=== PATIENT | male | born 1940 | race Caucasian/White ===

== ENCOUNTER 2020-05-07 14:09 | Inpatient (IN) | payer MEDICARE, OTHER ==
[~2020-05-07] VITALS: Ht 172.7 cm; Wt 86.7 kg
[2020-05-07] MEDS: NS 1,000 ML IV SCH ×2 (15:00→21:40)
[2020-05-07 15:12] LABS: BASO % 0.5 % (0.0-1.0); HEMATOCRIT 43.8 % (42.0-52.0); LYMPH # 0.8 10^3/uL (1.5-5.0); LYMPH % 18.4 % (24.0-44.0); MEAN CORPUSCULAR HEMOGLOBIN 31.6 pg (27.0-33.0); MEAN CORPUSCULAR VOLUME 98.9 fl (80.0-96.0); MONO # 0.4 10^3/uL (0.0-0.8); MONO % 9.2 % (0.0-5.0); NEUTROPHILS # 3.1 10^3/uL (1.5-8.5); PLATELET COUNT, AUTOMATED 105 10^3/uL (150-450); RED BLOOD COUNT 4.43 10^6/uL (4.30-6.10); WHITE BLOOD COUNT 4.3 10^3/uL (4.0-10.0)
--- NOTE | 2020-05-07 15:24 | REP ---
INDICATION: altered metanl status COMPARISON: None. TECHNIQUE: Axial noncontrast images from the skull base to the thoracic inlet with coronal reformations. This CT examination was performed using the following dose reduction techniques: Automated exposure control, adjustment of mA and/or kv according to the patient's size, and use of iterative reconstruction technique. FINDINGS: Atrophy with periventricular leukomalacia and microvascular ischemic changes are appreciated. The ventricles and sulci are symmetric. Martinez-white differentiation is maintained. There is no evidence for acute intracranial hemorrhage, mass/mass effect, pathology or infarction. No extra-axial fluid collection. Calvarium is intact. Paranasal sinuses and mastoid air cells are clear. IMPRESSION: Atrophy and microvascular ischemic changes. No acute intracranial hemorrhage, infarction, or mass/mass effect. <Electronically signed by Brad Khan > 05/07/20 [id number]
--- NOTE | 2020-05-07 15:25 | REP ---
INDICATION: Coronavirus workup COMPARISON: None. TECHNIQUE: Portable AP view of the chest FINDINGS: The mediastinum and cardiac silhouette are within normal limits for portable technique. The lung franco demonstrate perihilar and lower lobe infiltrates (left greater than right) consistent with COVID-19 pulmonary disease and multifocal pneumonia. IMPRESSION: Multifocal bibasilar infiltrates (left greater than right) consistent with COVID-19 pulmonary disease. <Electronically signed by Brad Khan > 05/07/20 [id number]
[2020-05-07] MEDS ORDERED: ACETAMINOPHEN 325 MG TAB PO ONE (15:30)
[2020-05-07 16:24] LABS: INR 1.07; PROTHROMBIN TIME 14.1 SECONDS (12.5-14.3)
[2020-05-07 16:25] LABS: PARTIAL THROMBOPLASTIN TIME 32.6 SECONDS (24.2-38.5)
[2020-05-07 16:28] LABS: D-DIMER QUANT 1582.84 ng/ml (<500)
[2020-05-07 16:34] LABS: BILIRUBIN,TOTAL 0.5 MG/DL (0.2-1.0); C REACTIVE PROTEIN QUANTITATIV 7.48 MG/DL (0.00-0.30); CALCIUM LEVEL 8.3 MG/DL (8.8-10.2); CK-MB VALUE MASS 3.3 NG/ML (<3.6); CREATININE FOR GFR 1.4 MG/DL (0.70-1.30); GLOMERULAR FILTRATION RATE 52.3 (>42); MAGNESIUM LEVEL 2.2 MG/DL (1.8-2.4); MB/CK RELATIVE INDEX 0.54 (< OR =4); POTASSIUM SERUM 4.4 MEQ/L (3.5-5.1); TOTAL PROTEIN 6.4 GM/DL (6.4-8.2); TROPONIN I 0.04 NG/ML (< 0.10)
[2020-05-07] MEDS ORDERED: ASPI81TA26 PO (17:05)
[2020-05-07] MEDS ORDERED: CEFD1CAP8 PO (17:05)
--- NOTE | 2020-05-07 19:58 | HPEPDOC ---
General Date of Admission May 07, 2020 at 18:32 Date of Service: May 07, 2020 Chief Complaint The patient is a 79-year-old male admitted with a reason for visit of Altered Mental Status,Covid 19. Source: Patient, Family History of Present Illness Mr. Freeman is a 79 year old male with history of prostate cancer s/p radiation in 1999 who is here with altered mental status and COVID 19 positive. Due to patient's AMS, history was obtained from the son, Eliecer Freeman. Patient started to have symptoms on 04/29/2020 with a cough. Then on 05/01/2020, he started to be lethargic and confused. On 05/05/2020, he had a fever, and [facility] There he was diagnosed with a UTI and COVID 19. Since they did not have a COVID unit, he was sent home with cefdinir. He did not do well at home. He had poor oral intact and still very confused. He was taken to the ED here. Imaging demonstrated multifocal bibasilar infiltrates (left greater than right). He required 2L of oxygen. When I went down to speak with him, he went into tangents. I asked about chest pain, and he started talking about a football accident when he was younger and that his father had 2 DC's in his 50s. He is redirectable. He denies shortness of breath, but reports the productive cough with white phlegm. He reports having dysuria. He does not know when it started but says he's had for a few days. He does like to talk. 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 He does know he is in the hospital. He thought about the year for a while but was able to say 2019. Suspecting that his altered mental status is secondary to infection, possibly UTI or pneumonia. Patient be admitted for metabolic encephalopathy and COVID 19 pneumonia. I did speak to both the son and patient's about CODE STATUS. Son had deferred to patient's . Patient's wanted more time to think about this, but has decided on full code at this time. I let them know that at any time during this admission, they can change his CODE STATUS. Home Medications Scheduled Aspirin (Aspirin EC) 81 Mg Tablet., 81 MG PO DAILY, (Reported) Cefdinir (Cefdinir) 300 Mg Capsule, 300 MG PO BID, (Reported) FOR 10 DAYS, STARTED 05/05 Allergies Coded Allergies: ampicillin (Verified Allergy, Unknown, UNKNOWN, 05/07/20) Past Medical History Medical History 1. Prostate cancer Surgical History 1. Radiation for us to cancer in 1999 Family History Father: at age 81, history of DC in his 50s Mother: , patient does not know mother's past medical history at this time Social History * Smoker: Denies Alcohol: Denies Drugs: denies A-FIB/CHADSVASC A-FIB History Current/History of A-Fib/PAF?: No Review of Systems Constitutional: Reports: Chills, Fever Eyes: Denies: Vision change ENT: Denies: Sore Throat Skin: Denies: Rash Pulmonary: Reports: Cough (productive with white sputum); Denies: Dyspnea Cardiovascular: Denies: Chest Pain Gastrointestinal: Denies: Nausea, Abdominal Pain, Diarrhea Genitourinary: Reports: Dysuria (for a few days) Hematologic: Denies: Bruising Musculoskeletal: Reports: Shoulder Pain Neurological: Reports: Numbness (left foot secondary to trauma) Physical Examination General Exam: Positive: No Acute Distress Eye Exam: Positive: EOMI; Negative: Sclera icteric ENT Exam: Positive: Atraumatic, Tongue Midline Neck Exam: Positive: Supple Chest Exam: Positive: Diminished Heart Exam: Positive: Rate Normal, Regular Rhythm Abdomen Exam: Positive: Normal bowel sounds, Soft; Negative: Tenderness Extremity Exam: Negative: Edema Skin Exam: Positive: Nl turgor and temperature Neuro Exam: Positive: Cranial Nerves 3-12 NL Psych Exam: Positive: Mood NL; Negative: Mental status NL Vital Signs Vital Signs Date Time Temp Pulse Resp B/P (MAP) Pulse Ox O2 Delivery O2 Flow Rate FiO2 05/07/20 19:06 98.6 66 19 99 Nasal Cannula 2.0 05/07/20 18:06 156/80 (105) Laboratory Data Labs 24H Laboratory Tests 2 05/07/20 14:26: Immature Granulocyte % (Auto) 0.9, Neutrophils (%) (Auto) 71.0H, Lymphocytes (%) (Auto) 18.4L, Monocytes (%) (Auto) 9.2H, Eosinophils (%) (Auto) 0.0, Basophils (%) (Auto) 0.5, Neutrophils # (Auto) 3.1, Lymphocytes # (Auto) 0.8L, Monocytes # (Auto) 0.4, Eosinophils # (Auto) 0.0, Basophils # (Auto) 0.0, Nucleated Red Blood Cells % (auto) 0.0 05/07/20 15:20: Urine Color YELLOW, Urine Appearance HAZY, Urine pH 5.0, Urine Specific [place] 1.023, Urine Protein 3+H, Urine Glucose (UA) NEGATIVE, Urine Ketones NEGATIVE, Urine Blood 2+H, Urine Nitrite NEGATIVE, Urine Bilirubin NEGATIVE, Urine Urobilinogen 0.2, Urine Leukocyte Esterase TRACEH, Urine WBC (Auto) 50H, Urine RBC (Auto) 31H, Urine Hyaline Casts (Auto) 0, Urine Bacteria (Auto) NEGATIVE, Urine Squamous Epithelial Cells 0, Urine Granular Casts (Auto) 1, Urine Mucus (Auto) SMALL, Urine Sperm (Auto) 05/07/20 15:54: Prothrombin Time 14.1H, Prothromb Time International Ratio 1.07, Activated Partial Thromboplast Time 32.6, Fibrinogen 466H, D-Dimer, Quantitative 1582.84H, Anion Gap 5L, Glomerular Filtration Rate 52.3, Lactic Acid Level 1.1, Calcium Level 8.3L, Magnesium Level 2.2, Ferritin 1113H, Total Bilirubin 0.5, Aspartate Amino Transf (AST/SGOT) 61H, Alanine Aminotransferase (ALT/SGPT) 40, Alkaline Phosphatase 41L, Lactate Dehydrogenase 390H, Total Creatine Kinase 616H, Creatine Kinase MB 3.3, Creatine Kinase MB Relative Index 0.54, Troponin I 0.04, C-Reactive Protein, Quantitative 7.48H, Total Protein 6.4, Albumin 3.0L, Albumin/Globulin Ratio 0.9 CBC/BMP Laboratory Tests 05/07/20 14:26 05/07/20 15:54 Microbiology Microbiology 05/07/20 Blood Culture, Received Pending 05/07/20 Urine Culture, Received Pending 05/07/20 Blood Culture, Received Pending Assessment/Plan Mr. Freeman is a 79 year old male is here with altered mental status, UTI, and COVID 19 pneumonia. Suspecting metabolic encephalopathy secondary to infection. Patient does report dysuria. He's had cefdinir at home which may skew UA and urine culture, but was diagnosed with UTI from [facility]. Chest x-ray demonstrates multifocal pneumonia. We'll treat for community acquired pneumonia with Rocephin and azithromycin. Pro calcitonin has been ordered which will help decide plan for antibiotics. Otherwise since patient requires oxygen, he'll be on dexamethasone, Remdesivir, and Lovenox. Plan / VTE VTE Prophylaxis Ordered?: Yes Plan Plan 1. Metabolic encephalopathy May be secondary to COVID pneumonia versus UTI Antibiotics will cover for both pneumonia and UTI On anticoagulation, steroids, and Remdesivir for COVID Patient does like to wander, we will place sitter in room 2. COVID pneumonia Symptoms began 04/29/2020 Productive cough and hypoxia. Imaging demonstrated multifocal pneumonia May have superimposed arterial infection on viral infection. We'll use Pro calcitonin to determine de-escalation of antibiotics Rocephin and azithromycin Monitor inflammatory markers 3. UTI Patient reports dysuria for a few days Diagnosed with UTI at [facility], was put on cefdinir May skew urinalysis and urine culture results Pending urine culture Ready on Rocephin 4. Acute kidney injury versus chronic kidney disease Unknown baseline Creatinine on admission was 1.4 says patient does not like to go to physician Monitor creatinine and supportive care Encourage oral intake of fluids 5. DVT prophylaxis Lovenox subcutaneous SHERYL HERNDON DO May 07, 2020 19:58
[2020-05-07] MEDS ORDERED: dexameTHASONE 4 MG/ML 1ML VIAL (J1100 PER 1MG) IV ONE (20:00)
[2020-05-07] MEDS ORDERED: cefTRIAXone SOD 1 GM in D5W MINI-BAG PLUS 50 ML IV SCH (22:00)
[2020-05-07] MEDS ORDERED: SODIUM CHLORIDE 0.9% INJ 10 ML SYR IV ONE (22:00)
[2020-05-07] MEDS ORDERED: AZITHROMYCIN INJ 500 MG, VIAL MATE ADAPTER 1 EACH in D5W 250 ML IV SCH (23:00)
[2020-05-08] VITALS (7 sets, daily range): BP systolic 136–161; BP diastolic 70–79; O2SAT 95–97
[2020-05-08] MEDS: NS 1,000 ML IV SCH (01:00)
[2020-05-08 07:11] LABS: HEMOGLOBIN 13.5 g/dl (13.5-17.5); MEAN CORPUSCULAR HEMOGLOBIN 31.9 pg (27.0-33.0); MEAN CORPUSCULAR HGB CONC 32.9 g/dl (32.0-36.5); MEAN CORPUSCULAR VOLUME 96.9 fl (80.0-96.0); PLATELET COUNT, AUTOMATED 133 10^3/uL (150-450); RED BLOOD COUNT 4.23 10^6/uL (4.30-6.10); WHITE BLOOD COUNT 3.2 10^3/uL (4.0-10.0)
[2020-05-08] MEDS ORDERED: LACTOBACILLUS ACIDOPHILUS CAP (BACID) PO SCH (08:00)
--- NOTE | 2020-05-08 08:03 | ECGEPIP ---
[facility] - ED Test Date: 2020-05-07 Pat Name: KEO LOZANO Department: Room: - Gender: Male Director Of Assisted Living: alfredito : 1940 Requested By: Pennie Fung Order Number: [id number] Reading MD: Pennie Fung Measurements Intervals [place] Rate: 80 P: 27 LA: 177 QRS: 3 QRSD: 108 T: -11 QT: 348 QTc: 403 Interpretive Statements SINUS RHYTHM POSSIBLE LEFT ATRIAL ENLARGEMENT POSSIBLE ANTERIOR MYOCARDIAL INFARCTION, OF INDETERMINATE AGE INFERIOR MYOCARDIAL INFARCTION, OF INDETERMINATE AGE INTERPRETATION BASED ON A DEFAULT AGE OF 40 YEARS CLINICAL CORRELATION NO PRIOR Electronically Signed on 05-08-2020 8:03:17 EST by Pennie Fung
[2020-05-08 08:05] LABS: ALBUMIN 2.6 GM/DL (3.2-5.2); ALT/SGPT 37 U/L (12-78); BILIRUBIN,DIRECT 0.1 MG/DL (0.0-0.2); BILIRUBIN,TOTAL 0.4 MG/DL (0.2-1.0); BLOOD UREA NITROGEN 23 MG/DL (7-18); CALCIUM LEVEL 8.3 MG/DL (8.8-10.2); CARBON DIOXIDE LEVEL 24 MEQ/L (21-32); CHLORIDE LEVEL 107 MEQ/L (98-107); FERRITIN 1026 NG/ML (26-388); GLOMERULAR FILTRATION RATE > 60.0 (>42); GLUCOSE, FASTING 133 MG/DL (70-100); MAGNESIUM LEVEL 2.1 MG/DL (1.8-2.4); POTASSIUM SERUM 4.8 MEQ/L (3.5-5.1); SODIUM LEVEL 137 MEQ/L (136-145); TOTAL PROTEIN 5.9 GM/DL (6.4-8.2); TROPONIN I 0.03 NG/ML (< 0.10)
[2020-05-08] MEDS ORDERED: dexameTHASONE 4 MG/ML 1ML VIAL (J1100 PER 1MG) IV SCH (09:00)
[2020-05-08] MEDS ORDERED: ENOXAPARIN 40MG/0.4ML SYRINGE (J1650 PER 10MG) SC SCH (09:00)
[2020-05-08] MEDS ORDERED: ASPIRIN 81 MG ENTERIC TAB PO SCH (09:00)
[2020-05-08] MEDS ORDERED: FLUBLOK(EGG FREE)(QUAD)INFLUENZA VACC 0.5ML SYRINGE 18YRS & OLDER IM ONE (09:00)
[2020-05-08 09:13] LABS: ANISOCYTOSIS 1+; ATYPICAL LYMPH 4 % (0-5); LYMPHOCYTES 15 % (16-44); MONOCYTES 6 % (0-5); NEUTROPHILS 75 % (28-66); PLATELET ESTIMATE DECREASED (NORMAL)
[2020-05-08] MEDS ORDERED: CIPR500S PO (14:42)
--- NOTE | 2020-05-08 19:11 | DS.PDOC ---
Discharge Summary General Date of Admission May 07, 2020 at 18:32 Date of Discharge Friday, May 08, 2020 Attending Physician: FARIBA NOBLE MD Discharge Summary PROCEDURES PERFORMED DURING STAY: None ADMITTING DIAGNOSES: Metabolic encephalopathy Covid pneumonia Possible acute kidney injury Status post urinary tract infection on outpatient antibiotics DISCHARGE DIAGNOSES: Covid 19 infection Early signs of dementia Possible acute kidney injury, resolved Status post urinary tract infection on outpatient antibiotics COMPLICATIONS/CHIEF COMPLAINT: Altered Mental Status,Covid 19. HISTORY OF PRESENT ILLNESS: Aj is a pleasant 79-year-old male with notable past medical history of prostate cancer status post radiation in 1999, who came to the [facility] ED on 05/07/20 at the recommendation of his and son for confusion in the setting of positive Covid 19 infection. The patient initially began having a cough on 04/29 and his symptoms subsequently progressed on to confusion and lethargy and then ultimately on 05/05 with fever. At that time, patient presented to [facility] where he was diagnosed with urinary tract infection as well as testing positive for Covid 19 infection. He was subsequently discharged from [facility] within oral outpatient prescription for Cefdinir. Due to continued confusion, patient's family brought him to [facility] for further evaluation. In the emergency department portable chest x-ray showed poor inspiratory effort with cardiomegaly and bilateral infiltrates consistent with Covid 19. Pneumonia. The patient was started on remdesivir 100 mg IV, after receiving a one time dose of 200 mg IV. He was also started on daily dexamethasone 6 mg IV, aspirin 81 mg, and Lovenox 40 mg daily. He was placed on nasal cannula supplemental oxygen. In the setting of his recent UTI as well as imaging of Covid like bilateral infiltrates, he was started on both azithromycin and ceftriaxone and given a 1 L infusion of normal saline. In the setting of confusion, a head CT study was performed and showed no acute hemorrhage, mass/mass effect, or infarct. HOSPITAL COURSE: Aj was admitted to the Covid specific floor for continued management under the care of the hospitalist service. Overnight, his respiratory rates stayed steady between 18-22, and his saturations were excellent, between 94-100% on 2-3 L of nasal cannula. Due to how well he was saturating on nasal cannula, he was subsequently taken off and was breathing on room air throughout the day on 05/08/2020. At no point was he ever hypoxic on room air, showed any accessory muscle use with respiration, tachypneic, or unable to speak in full sentences. He remained afebrile overnight and hemodynamically stable. His labs showed leukopenia and thrombocytopenia, characteristic of Covid 19. A pro-calcitonin was negative. Urinalysis showed some proteins and RBCs with trace leukocyte esterase, but there were no urine bacteria nor nitrites, and urine culture was negative. Two initial blood cultures were extracted and preliminary results showed one culture completely negative, while the other showed gram-positive cocci in clusters. It is our assertion that the gram-positive cocci in clusters result was most likely a result of contamination. Due to the fact that patient was not requiring any active intervention to treat his positive Covid 19 result (not hypoxic, not febrile, not hemodynamically unstable, not in respiratory distress), and with his negative urine culture, no acute medical reason warranted continued admission. He did display some early modest signs of dementia and seemed to be having initial sundowning in the early afternoon on 05/08/2020. Patient remained alert and oriented to person, place and time, while struggling at points with situation, but ultimately did answer every question and perform every command given to him. His gait was assessed, as was his ability to get up and out of a chair. He appeared a bit unstable at first, but was able to regain his footing and slowly complete the ambulatory assignments. It was explained to him that he will be given a 5 day course of antibiotics upon discharge to continue/complete the treatment of his previous urinary tract infection, as well as to follow-up as an outpatient, both with a PCP (patient does not have one and will likely establish at [facility] where his Rupal receives her primary care), and to be seen by urology within the next 23 weeks to assess via cystoscopy if he has a urinary stricture in the setting of his prostate cancer and radiation as well as recent UTI My name is Dr. Boothe of the hospitalist service and I will continue to follow along the results of the patient's positive culture at 48 hours. DISCHARGE MEDICATIONS: Please see below. ALLERGIES: Please see below. PHYSICAL EXAMINATION ON DISCHARGE: VITAL SIGNS: Please see below. GENERAL: Pleasant and loquacious, elderly male, seated in bedside chair. Alert and oriented to person, place and time, struggles at points describing situation. No acute distress. HEENT: No cephalic, atraumatic. Noninjected, anicteric sclera. CARDIOVASCULAR EXAMINATION: Regular rate, regular rhythm. Normal S1, S2. No murmurs or rubs appreciated. RESPIRATORY EXAMINATION: Breathing room air. Clear to auscultation bilaterally with no appreciated adventitious breath sounds. Symmetric chest expansion. No accessory muscle use. ABDOMINAL EXAMINATION: Soft, moderately obese. Nondistended and nontender. Normoactive bowel sounds throughout. No rigidity appreciated. EXTREMITIES: Bilateral lower extremities are free edema with no signs of clubbing or cyanosis. 2+ radial pulses palpated bilaterally. NEUROLOGICAL EXAMINATION: Awake, alert and oriented to person, place and time. He does struggle at times with situation and will speak in circles, but ultimately answers all questions and commands. Slightly unstable gait initially, otherwise he has a slower but adequate gait through the rest of ambulatory assessment. Sensation light touch intact of upper and lower extremities bilaterally. Cranial nerves III through XII are grossly intact. Non-dysarthric speech. LABORATORY DATA: Reviewed Please see below for specific values IMAGING: Head CT without contrast, 05/07/20 IMPRESSION: Multifocal bibasilar infiltrates (left greater than right) consistent with COVID-19 pulmonary disease. Portable chest x-ray, 05/07/2020 IMPRESSION: Multifocal bibasilar infiltrates (left greater than right) consistent with COVID-19 pulmonary disease. PROGNOSIS: Fair ACTIVITY: As tolerated DIET: Regular DISPOSITION: Discharge home with home health services and assessment for need of physical therapy DISCHARGE INSTRUCTIONS & ITEMS TO FOLLOWUP ON ON OUTPATIENT: -Follow-up with your primary care physician within the next 5-7 days. -Follow-up with an urologist physician within the next two weeks to assess need for possible cystoscopy looking for stricture. -Take prescribed antibiotic Ciprofloxacin: one 500 mg tablet, two times per day for a total of 5 days for continued UTI treatment. -Maintain isolation quarantine measures through tomorrow, Monday, May 09 (10 days post-symptom onset). -Maintain general quarantine measure through May 13 (marking two weeks since symptom onset). -Seek immediate medical care/return to the ED should presenting symptoms return and/or acutely worsen. DISCHARGE CONDITION: Stable TIME SPENT ON DISCHARGE: 37 minutes Vital Signs/I&Os Vital Signs Date Time Temp Pulse Resp B/P (MAP) Pulse Ox O2 Delivery O2 Flow Rate FiO2 05/08/20 16:00 95 Nasal Cannula 2.0 05/08/20 12:00 97.4 65 18 136/79 (98) 05/08/20 01:10 97 I&O- Last 24 Hours up to 6 AM 05/08/20 06:00 Intake Total 2105 ml Output Total 125 ml Balance 1980 ml Laboratory Data Labs 24H Laboratory Tests 2 05/08/20 06:38: Neutrophils (%) (Auto) , Nucleated Red Blood Cells % (auto) 0.0, Neutrophils 75H, Lymphocytes (Manual) 15L, Monocytes (Manual) 6H, Atypical Lymphocytes 4, Anisocytosis 1+, Platelet Estimate DECREASED, Fibrinogen 432, Anion Gap 6L, Glomerular Filtration Rate > 60.0, Calcium Level 8.3L, Magnesium Level 2.1, Ferritin 1026H, Total Bilirubin 0.4, Direct Bilirubin 0.1, Aspartate Amino Transf (AST/SGOT) 54H, Alanine Aminotransferase (ALT/SGPT) 37, Alkaline Phosphatase 36L, Troponin I 0.03#, Total Protein 5.9L, Albumin 2.6L, Albumin/Globulin Ratio 0.8, Procalcitonin 0.06 CBC/BMP Laboratory Tests 05/08/20 06:38 Microbiology Microbiology 05/07/20 Blood Culture - Preliminary, Resulted No growth after 24 hours . All specim... 05/07/20 Urine Culture - Final, Complete 05/07/20 Blood Culture - Preliminary, Resulted Discharge Medications Scheduled Aspirin (Aspirin EC) 81 Mg Tablet.dr, 81 MG PO DAILY, (Reported) Ciprofloxacin (Cipro) 500 Mg/5 Ml Diana..rec, 500 MG PO BID Allergies Coded Allergies: ampicillin (Verified Allergy, Unknown, UNKNOWN, 05/07/20) LARS BOOTHE D.O. May 08, 2020 19:11
[2020-05-08] MEDS ORDERED: SODIUM CHLORIDE 0.9% INJ 10 ML SYR IV SCH (22:00)
== END 2020-05-08 18:05 | disposition home or self-care (01) | DRG 177 ==
LOC: M ED 14:09 → M ED INP 18:32 → M 4MAIN 05-08 01:03
PROVIDERS: ADMIT Internal Medicine; ATTEND Internal Medicine
DX: U07.1 COVID-19 (principal); G93.41 Metabolic encephalopathy; N17.9 Acute kidney failure, unspecified; N39.0 Urinary tract infection, site not specified; F03.90 Unspecified dementia, unspecified severity, without behavioral disturbance, psychotic disturbance, mood disturbance, and anxiety; Z85.46 Personal history of malignant neoplasm of prostate; Z88.0 Allergy status to penicillin; Z79.82 Long term (current) use of aspirin; Z79.899 Other long term (current) drug therapy

== ENCOUNTER → 2021-04-26 | Outpatient (CLI) | payer MEDICARE, OTHER ==
[~2021-04-26] MED LIST: ASPI81TA26 PO; CEFD1CAP8 PO; CIPR500S PO
--- NOTE | 2021-04-27 13:23 | REP ---
INDICATION: DIAGNOSING ABNORMAL FINDING OF LUNG R91.8. COMPARISON: There are no prior PET CTs for comparison. Prior CT examination of the chest 03/19/2021 from an outside institution was reviewed. TECHNIQUE: After the intravenous administration of 8.92 mCi of FDG 18 triplane whole-body PET-CT was performed from the skull base to the mid thigh. NONCONTRAST HELICAL CT IMAGING WAS PERFORMED OVER THE SAME RANGE WITHOUT BREATH HOLD FOR ATTENUATION CORRECTION OF PET IMAGES AND ANATOMIC CORRELATION, BUT NOT FOR PRIMARY INTERPRETATION IT IS NOT OF STANDARD DIAGNOSTIC QUALITY. FINDINGS: There are areas of hypermetabolism seen in both the right middle lobe and right lower lobe parenchymal lesions seen on the prior CT of 03/19/2021. The hypermetabolism identified consists of small foci with in the lesions themselves rather than the whole lesion being hypermetabolic. The maximal SUV value in the right middle lobe lesion is 2.68 and the maximal SUV value of the right lower lobe intralesional focus is 2.55. I cannot responsibly or accurately compare the size, density, and morphologic appearance of those lesions on the nondiagnostic CT component of today's exam to the diagnostic CT of 03/19/2021 as detailed in the technique section above. No other areas of abnormal hypermetabolic activity are seen in the neck, chest, abdomen, or pelvis. There is scattered patchy muscular hypermetabolism which is most consistent with insufficient post injection resting. IMPRESSION: The hypermetabolic activity seen within the 2 right lung lesions, as described above, is nonspecific. Due to the compilation of vascular structures within round atelectasis that certainly remains in the differential diagnosis. I would expect true neoplastic hypermetabolism within lung lesions would encompass most if not all of the lesion involved. Certainly, the etiology of this finding remains uncertain. CT follow-up is recommended. <Electronically signed by Thad Oliver > 04/27/21 [id number]
== END ==
LOC: M PLARAD 15:57
PROVIDERS: ATTEND Internal Medicine Pulmonary Disease
DX: R91.8 Other nonspecific abnormal finding of lung field (principal); J98.11 Atelectasis
CPT/HCPCS: 78815; A9552

== ENCOUNTER → 2021-08-23 | Outpatient (CLI) | payer MEDICARE, OTHER ==
[~2021-08-23] MED LIST changes: -CEFD1CAP8 PO; +CEFD300C41 PO
== END ==
LOC: M RAD 08:55
PROVIDERS: ATTEND Internal Medicine Pulmonary Disease
DX: R91.8 Other nonspecific abnormal finding of lung field (principal); J47.9 Bronchiectasis, uncomplicated

== ENCOUNTER → 2021-12-23 | Outpatient (CLI) | payer MEDICARE, OTHER | LOC: M SLEEP 20:00 | PROVIDERS: ATTEND Internal Medicine Pulmonary Disease | DX: G47.33 Obstructive sleep apnea (adult) (pediatric) (principal) ==

== ENCOUNTER → 2022-03-07 | Outpatient (CLI) | payer MEDICARE, OTHER | LOC: M PLAIMG 10:34 | PROVIDERS: ATTEND Internal Medicine Pulmonary Disease | DX: R91.8 Other nonspecific abnormal finding of lung field (principal) ==

== ENCOUNTER → 2022-07-11 | Outpatient (CLI) | payer MEDICARE, OTHER | LOC: M SOG 14:19 | PROVIDERS: ATTEND Orthopaedic Surgery Hand Surgery | DX: M19.042 Primary osteoarthritis, left hand (principal) ==

== ENCOUNTER → 2023-03-06 | Outpatient (CLI) | payer MEDICARE, OTHER ==
[~2023-03-06] MED LIST changes: -CEFD300C41 PO; +CEFD300C42 PO
== END ==
LOC: M PLAIMG 13:10
PROVIDERS: ATTEND Internal Medicine Pulmonary Disease
DX: R91.8 Other nonspecific abnormal finding of lung field (principal); I25.10 Atherosclerotic heart disease of native coronary artery without angina pectoris; K76.0 Fatty (change of) liver, not elsewhere classified; K80.20 Calculus of gallbladder without cholecystitis without obstruction

== ENCOUNTER → 2023-04-26 | Outpatient (REF) | payer MEDICARE, OTHER ==
[~2023-04-26] MED LIST changes: +CEFD1CAP9 PO; -CEFD300C42 PO
[2023-04-26 13:46] LABS: APPEARANCE, URINE TURBID (CLEAR); BACTERIA, URINE AUTO NEGATIVE (NEGATIVE); BILIRUBIN, URINE AUTO NEGATIVE (NEGATIVE); BLOOD, URINE BLOOD NEGATIVE (NEGATIVE); CALCIUM OXALATE CRYSTALS MODERATE; COLOR, URINE AMBER (YELLOW); GLUCOSE, URINE (UA) AUTO NEGATIVE (NEGATIVE); KETONE, URINE AUTO NEGATIVE (NEGATIVE); LEUKOCYTE ESTERASE, URINE AUTO 2+ (NEGATIVE); MUCUS, URINE SMALL (NEGATIVE); NITRITE, URINE AUTO NEGATIVE (NEGATIVE); PROTEIN, URINE AUTO 2+ mg/dL (NEGATIVE); RBC, URINE AUTO 5 /HPF (0-3); SPECIFIC GRAVITY URINE AUTO 1.026 (1.002-1.035); SQUAMOUS EPITHELIAL CELL UR AU 0 /HPF (0-6); UROBILINOGEN, URINE AUTO 0.2 mg/dL (0.0-2.0); WBC, URINE AUTO 110 /HPF (0-3)
== END ==
LOC: M SMT 12:56
PROVIDERS: ATTEND Nurse Practitioner Family
DX: R31.9 Hematuria, unspecified (principal)

== ENCOUNTER → 2023-05-17 | Outpatient (REF) | payer MEDICARE, OTHER | LOC: M SMT 16:40 | PROVIDERS: ATTEND Urology | DX: R31.0 Gross hematuria (principal) ==

== ENCOUNTER 2023-07-24 06:06 | Day surgery (SDC) | payer MEDICARE, OTHER ==
[~2023-07-24] VITALS: Ht 170.2 cm; Wt 88.9 kg
[~2023-07-24 06:06] MED LIST changes: +ERGO500029 PO; +MYRB50TA PO; +VENTAER; +ceFAZolin SOD 2 GM in IV 1 EA IV ONE
[2023-07-24] MEDS ORDERED: LR 1,000 ML IV SCH ×2 (06:40→08:30)
[2023-07-24] MEDS ORDERED: propofoL 200 MG/20 ML VIAL As Ordered ONE (06:57)
[2023-07-24] MEDS ORDERED: ePHEDrine SULFATE 25 MG/5 ML(5MG/ML) SYRINGE As Ordered ONE (06:57)
[2023-07-24] MEDS ORDERED: ROCURONIUM BROMIDE 50MG/5ML VIAL As Ordered ONE (06:57)
[2023-07-24] MEDS ORDERED: ONDANSETRON 4MG 2ML VIAL As Ordered ONE (06:57)
[2023-07-24] MEDS ORDERED: SUGAMMADEX SODIUM 500 MG/5 ML VIAL (BRIDION) As Ordered ONE (06:57)
[2023-07-24] MEDS ORDERED: PHENYLephrine 500MCG 5ML (100MCG/ML) SYRINGE As Ordered ONE (06:57)
[2023-07-24] MEDS ORDERED: LIDOCAINE 2% 100MG/5ML SDV (FOR ANES.) As Ordered ONE (06:57)
[2023-07-24] MEDS ORDERED: fentaNYL 100 MCG/2 ML INJECTION As Ordered ONE (06:57)
[2023-07-24] MEDS ORDERED: ACETAMINOPHEN 1000MG 100ML IV BAG As Ordered ONE (07:58)
[2023-07-24] MEDS ORDERED: GLYCOPYRROLATE INJ 0.2 MG/ML 2 ML VIAL As Ordered ONE (08:10)
[2023-07-24] MEDS ORDERED: ONDANSETRON 4MG 2ML VIAL IV PRN (08:30)
[2023-07-24] MEDS ORDERED: fentaNYL 100 MCG/2 ML INJECTION IV PRN (08:30)
[2023-07-24] MEDS ORDERED: oxyCODONE 5MG TAB PO PRN (08:30)
[2023-07-24] MEDS ORDERED: HYDROMORPHONE HCL 0.5 MG/ 0.5 ML SYRINGE IV PRN (08:30)
[2023-07-24] MEDS ORDERED: PYRI1TAB5 PO (08:31)
[2023-07-24] MEDS ORDERED: MACR100C43 PO (08:31)
[2023-07-24 09:52] VITALS: BP 152/83; TEMP 97.3; O2SAT 96
== END 2023-07-24 10:13 | disposition home or self-care (01) ==
LOC: M SDC 06:06
PROVIDERS: ATTEND Urology
DX: C67.9 Malignant neoplasm of bladder, unspecified (principal); I10 Essential (primary) hypertension; E78.5 Hyperlipidemia, unspecified; Z86.16 Personal history of COVID-19; Z92.3 Personal history of irradiation; Z85.46 Personal history of malignant neoplasm of prostate; G47.33 Obstructive sleep apnea (adult) (pediatric); Z79.82 Long term (current) use of aspirin; Z79.899 Other long term (current) drug therapy; Z88.0 Allergy status to penicillin
CPT/HCPCS: 52240; 88305; J0131; J1100; J2371; J2405; J3010

== ENCOUNTER → 2023-09-28 | Outpatient (CLI) | payer MEDICARE, OTHER ==
[~2023-09-28] MED LIST changes: +MACR100C43 PO; +PYRI1TAB5 PO; -ceFAZolin SOD 2 GM in IV 1 EA IV ONE
== END ==
LOC: M RAD 11:47
PROVIDERS: ATTEND Surgery
DX: R10.2 Pelvic and perineal pain (principal); R93.41 Abnormal radiologic findings on diagnostic imaging of renal pelvis, ureter, or bladder

== ENCOUNTER → 2023-10-11 | Outpatient (REF) | payer MEDICARE, OTHER ==
[2023-10-11 17:37] LABS: APPEARANCE, URINE MANUAL HAZY (CLEAR); COLOR, URINE MANUAL YELLOW (YELLOW)
[2023-10-11 17:38] LABS: BILIRUBIN, URINE MANUAL NEGATIVE (NEGATIVE); GLUCOSE, URINE (UA) MANUAL NEGATIVE (NEGATIVE); KETONE, URINE MANUAL NEGATIVE (NEGATIVE); NITRITE, URINE MANUAL NEGATIVE (NEGATIVE); PROTEIN, URINE MANUAL 2+ mg/dL (NEGATIVE); UROBILINOGEN, URINE MANUAL NORMAL (NORMAL)
[2023-10-11 17:39] LABS: BLOOD URINE MANUAL POSITIVE (NEGATIVE); LEUKOCYTE ESTERASE, URINE MAN TRACE (NEGATIVE)
[2023-10-11 19:24] LABS: CALCIUM OXALATE CRYSTALS,URINE MOD AMOUNT /hpf
[2023-10-11 19:25] LABS: BACTERIA, URINE NONE SEEN; HYALINE CAST, URINE NONE SEEN /lpf (0-1); SQUAMOUS EPITHELIAL CELL URINE NONE SEEN /hpf (SMALL AMT)
== END ==
LOC: M SMT 17:15
PROVIDERS: ATTEND Urology
DX: Z85.51 Personal history of malignant neoplasm of bladder (principal); Z79.899 Other long term (current) drug therapy

== ENCOUNTER → 2023-12-15 | Outpatient (REF) | payer MEDICARE, OTHER ==
[2023-12-15 18:43] LABS: APPEARANCE, URINE HAZY (CLEAR); BACTERIA, URINE AUTO NEGATIVE (NEGATIVE); BILIRUBIN, URINE AUTO NEGATIVE (NEGATIVE); BLOOD, URINE BLOOD NEGATIVE (NEGATIVE); COLOR, URINE YELLOW (YELLOW); GLUCOSE, URINE (UA) AUTO NEGATIVE (NEGATIVE); KETONE, URINE AUTO NEGATIVE (NEGATIVE); LEUKOCYTE ESTERASE, URINE AUTO NEGATIVE (NEGATIVE); MUCUS, URINE SMALL (NEGATIVE); NITRITE, URINE AUTO NEGATIVE (NEGATIVE); PROTEIN, URINE AUTO 2+ mg/dL (NEGATIVE); RBC, URINE AUTO 3 /HPF (0-3); SPECIFIC GRAVITY URINE AUTO 1.024 (1.002-1.035); SQUAMOUS EPITHELIAL CELL UR AU 0 /HPF (0-6); UROBILINOGEN, URINE AUTO 0.2 mg/dL (0.0-2.0); WBC, URINE AUTO 18 /HPF (0-3)
== END ==
LOC: M SMT 16:53
PROVIDERS: ATTEND Urology
DX: N28.89 Other specified disorders of kidney and ureter (principal)

== ENCOUNTER → 2023-12-28 | Outpatient (CLI) | payer MEDICARE, OTHER ==
[~2023-12-28] MED LIST changes: +PROHANCE 279.3MG/ML 15ML VIAL ONE; +PROHANCE 279.3MG/ML 5ML VIAL ONE
== END ==
LOC: M PLAIMG 12:24
PROVIDERS: ATTEND Urology
DX: N28.89 Other specified disorders of kidney and ureter (principal)
CPT/HCPCS: 72197; 74183; A9576

== ENCOUNTER → 2024-01-17 | Outpatient (REF) | payer MEDICARE, OTHER ==
[~2024-01-17] MED LIST changes: -PROHANCE 279.3MG/ML 15ML VIAL ONE; -PROHANCE 279.3MG/ML 5ML VIAL ONE
[2024-01-17 18:19] LABS: APPEARANCE, URINE HAZY (CLEAR); BACTERIA, URINE AUTO NEGATIVE (NEGATIVE); BILIRUBIN, URINE AUTO NEGATIVE (NEGATIVE); BLOOD, URINE BLOOD NEGATIVE (NEGATIVE); COLOR, URINE YELLOW (YELLOW); GLUCOSE, URINE (UA) AUTO NEGATIVE (NEGATIVE); KETONE, URINE AUTO NEGATIVE (NEGATIVE); LEUKOCYTE ESTERASE, URINE AUTO NEGATIVE (NEGATIVE); MUCUS, URINE SMALL (NEGATIVE); NITRITE, URINE AUTO NEGATIVE (NEGATIVE); PROTEIN, URINE AUTO 2+ mg/dL (NEGATIVE); RBC, URINE AUTO 1 /HPF (0-3); SPECIFIC GRAVITY URINE AUTO 1.027 (1.002-1.035); SQUAMOUS EPITHELIAL CELL UR AU 0 /HPF (0-6); UROBILINOGEN, URINE AUTO 0.2 mg/dL (0.0-2.0); WBC, URINE AUTO 0 /HPF (0-3)
== END ==
LOC: M SMT 17:18
PROVIDERS: ATTEND Urology
DX: Z85.51 Personal history of malignant neoplasm of bladder (principal)

== ENCOUNTER → 2024-04-17 | Outpatient (REF) | payer MEDICARE, OTHER ==
[2024-04-17 18:41] LABS: APPEARANCE, URINE HAZY (CLEAR); BACTERIA, URINE AUTO NEGATIVE (NEGATIVE); BILIRUBIN, URINE AUTO NEGATIVE (NEGATIVE); BLOOD, URINE BLOOD 2+ (NEGATIVE); COLOR, URINE YELLOW (YELLOW); GLUCOSE, URINE (UA) AUTO NEGATIVE (NEGATIVE); KETONE, URINE AUTO NEGATIVE (NEGATIVE); LEUKOCYTE ESTERASE, URINE AUTO TRACE (NEGATIVE); MUCUS, URINE SMALL (NEGATIVE); NITRITE, URINE AUTO NEGATIVE (NEGATIVE); PROTEIN, URINE AUTO NEGATIVE (NEGATIVE); RBC, URINE AUTO 82 /HPF (0-3); SPECIFIC GRAVITY URINE AUTO 1.012 (1.002-1.035); SQUAMOUS EPITHELIAL CELL UR AU 0 /HPF (0-6); UROBILINOGEN, URINE AUTO 0.2 mg/dL (0.0-2.0); WBC, URINE AUTO 8 /HPF (0-3)
== END ==
LOC: M SMT 17:14
PROVIDERS: ATTEND Urology
DX: Z85.51 Personal history of malignant neoplasm of bladder (principal)

== ENCOUNTER → 2024-08-07 | Outpatient (REF) | payer MEDICARE, OTHER ==
[2024-08-07 18:25] LABS: APPEARANCE, URINE CLEAR (CLEAR); BACTERIA, URINE AUTO NEGATIVE (NEGATIVE); BILIRUBIN, URINE AUTO NEGATIVE (NEGATIVE); BLOOD, URINE BLOOD 1+ (NEGATIVE); COLOR, URINE YELLOW (YELLOW); GLUCOSE, URINE (UA) AUTO NEGATIVE (NEGATIVE); KETONE, URINE AUTO NEGATIVE (NEGATIVE); LEUKOCYTE ESTERASE, URINE AUTO TRACE (NEGATIVE); MUCUS, URINE SMALL (NEGATIVE); NITRITE, URINE AUTO NEGATIVE (NEGATIVE); PROTEIN, URINE AUTO 1+ mg/dL (NEGATIVE); RBC, URINE AUTO 6 /HPF (0-3); SPECIFIC GRAVITY URINE AUTO 1.016 (1.002-1.035); SQUAMOUS EPITHELIAL CELL UR AU 0 /HPF (0-6); UROBILINOGEN, URINE AUTO 0.2 mg/dL (0.0-2.0); WBC, URINE AUTO 11 /HPF (0-3)
== END ==
LOC: M SMT 16:59
PROVIDERS: ATTEND Urology
DX: Z85.51 Personal history of malignant neoplasm of bladder (principal)